=== PATIENT | female | born 1975 | race Caucasian/White ===

== ENCOUNTER 2020-04-11 10:45 | Observation (INO) ==
[2020-04-11 10:56] VITALS: BMI 21.9
[2020-04-11] MEDS ORDERED: NITROSTAT SL PRN ×2 (11:32→13:07)
[2020-04-11] MEDS ORDERED: LEVSIN/MAALOX/LIDOC VISC ONE (11:37)
--- NOTE | 2020-04-11 11:42 | DR.CP ---
HPI Time Seen Time Seen by Provider: 04/11/20 11:18 PCP Primary Care Physician: DR LEON Complaint Chief Complaint Doctor Comments: pt mathieu epigastric pain radiates up sub- sternally up to 8 out of 10 intensity-now 03/08 COVID-19 Coronavirus risk:travel/contact w/high risk person: No Has patient experienced Coronavirus symptoms: No Source History Provided: Patient Mode of Arrival Mode of Arrival: Ambulatory Timing Onset of Chief Complaint: 04/11/20 PMH PMH Past Medical History: Yes Past Medical History: Migraines, GERD, Hypertension and Hypothyroidism Past Surgical History: Yes Surgical History: Cholecystectomy, Hysterectomy and Ortho Surgery Family History History of Family Medical Conditions: Yes Family Medical History: Diabetes Mellitus and Heart Failure Social History Does patient currently use any type of tobacco product: No Have you used tobacco products in the last 12 months: No Type of Tobacco Use: None Does any household member use tobacco: No Alcohol Use: None Do you use any recreational Drugs:: No Lives With: Alone Lives Where: Home Travel Risk Coronavirus risk:travel/contact w/high risk person: No Has patient experienced Coronavirus symptoms: No Infectious screening In the last 2 months have you had wt loss of >10#?: NO Have you had fever, night sweats or hemotysis?: No Have you traveled outside the country in the last 6 months?: No Isolation: Standard ROS Review of Systems Constitutional: No Symptoms Reported; negative See HPI, Chills, Diaphoresis, Fever, Malaise, Weakness, Irritable, Fatigue, Loss of Appetite and Other Eyes: negative No Symptoms Reported, See HPI, Eye Pain, Blurred Vision, Tearing, Discharge, Photophobia, Diplopia and Other ENTM: negative No Symptoms Reported, See HPI, Ear Pain, Ear Discharge, Pulling on Ears, Hearing Loss, Nose Pain, Nose Discharge, Epistaxis, Nose Congestion, Mouth Pain, Mouth Swelling, Loose Teeth, Drooling, Throat Pain, Throat Swelling, Ear Foreign Body and Tooth/Dental Pain Respiratoy: negative No Symptoms Reported, See HPI, Productive Cough, Non- Productive Cough, Moist Cough, Dry Cough, Hacking Cough, Barking Cough, Brassy Cough, Orthopnea, Short of Breath, Stridor, Wheezing, Hemoptysis and Other Cardiovascular: Other (EPIGASTRIC PAIN UP TP 8/10 INTENSITY NOW 6/10, OF A AQUEEZING NATURE A woke her up from sleep at 2;30 this am sz increase when "I move around" ) Gastrointestinal/Abdominal: negative No Symptoms Reported, See HPI, Abdominal Pain, Constipation, Diarrhea, Nausea, Vomiting, Food Intolerance and Other Genitourinary: negative No Symptoms Reported, See HPI, Discharge, Dysuria, Frequency, Hematuria, Pain, Bleeding and Other Neurological: negative No Symptoms Reported, See HPI, Anxiety, Depressed, Emotional Problems, Headache, Numbness, Paresthesia, Pre-existing Deficit, Seizure, Tingling, Tremors, Weakness, Dizziness, Problems Walking, Speech Problem and Other Musculoskeletal: negative No Symptoms Reported, See HPI, Back Pain, Gout, Joint Pain, Joint Swelling, Muscle Pain, Muscle Stiffness, Neck Pain, Right, Left, Neck, Chest wall, Rib(s), Back, Shoulder, Arm, Elbow, Forearm, Wrist, Hand, Pelvis, Hip, Leg, Knee, Ankle, Foot and Other Integumentary: negative No Symptoms Reported, See HPI, Change in Color, Change in Hair/Nails, Dryness, Lesions, Lumps, Rash, Itching, Wound, Bruises, Juandice and Other Hematologic/Lymphatic: negative No Symptoms Reported, See HPI, Anemia, Blood Clots, Easy Bleeding, Easy Bruising, Swollen Glands, Lymphadenopathy and Other Endocrine: negative No Symptoms Reported, See HPI, Excessive Sweating, Flushing, Intolerance to Cold, Intolerance to Heat, Increased Hunger, Increased Thirst, Increased Urine, Unexplained Weight Gain, Unexplained Weight Loss, Failure to Thrive, Decreased Appetite and Other Psychiatric: negative No Symptoms Reported, See HPI, Anxiety, Depression, Hallucinations, Excessive crying, Suicidal and Other All Other Systems: Reviewed and Negative PE Vitals Vitals: Temperature 98.1 F Pulse Rate 90 Respiratory Rate 22 Blood Pressure 116/81 O2 Sat by Pulse Oximetry 100 General Limitations: No Limitations General Appearance: Alert, Anxious and Other (with c/o of CP) Head Head Exam: Normal Inspection, Atraumatic and Normocephalic Eyes Eye exam: Normal Appearance, PERRL and EOMI; negative Scleral Icterus and Conjunctival Injection ENT ENT Exam: Normal Exam, Normal Oropharynx, Normal External Ear Exam and Mucous Membranes Moist Chest Chest Inspection: Normal Inspection and Symmetric Chest Wall Rise; negative Tenderness Respiratory Respiratory Exam: Normal Lung Sounds Bilat; negative Accessory Muscle Use, Chest Wall Tenderness and Prolonged Expiratory Phase Respiratory Exam: Bilateral: Clear to Auscultation Cardiovascular Cardiovascular Exam: Regular Rate, Normal Rhythm and Normal Heart Sounds; negative Bradycardia, Tachycardia, Irregular Rhythm, Systolic Murmur and Diastolic Murmur Pulse: Normal Edema: Normal Abdominal Exam Abdominal Exam: Normal Inspection, Normal Bowel Sounds and Soft; negative Distention, Tenderness and Guarding Extremities Extremities Exam: Normal Inspection and Full ROM; negative Tenderness, Normal Capillary Refill, Edema and Joint Swelling Back Back Exam: Normal Inspection and Full ROM; negative Tenderness, (R) CVA Tenderness, (L) CVA Tenderness, Paraspinal Tenderness and Vertebral Tenderness Neurologic Neurological Exam: Alert, Oriented X3 and Normal Gait; negative Motor Sensory Deficit Psychiatric Psychiatric Exam: Other (anxious ) Skin Skin Exam: Warm, Dry, Intact and Normal Color ROR Labs Reviewed Laboratory Results Reviewed?: Yes Result Diagrams: 04/11/20 11:43 04/11/20 11:43 Laboratory: WBC 6.3 X10^3/uL (3.6-10.0) 04/11/20 11:43 RBC 3.83 X10^6/uL (3.5-5.4) 04/11/20 11:43 Hgb 11.8 g/dL (12.0-16.0) L 04/11/20 11:43 Hct 35.3 % (36.0-47.0) L 04/11/20 11:43 MCV 92.1 fL (80.0-100.0) 04/11/20 11:43 MCH 30.9 pg (27.0-34.0) 04/11/20 11:43 MCHC 33.6 g/dL (33.0-35.0) 04/11/20 11:43 RDW 14.2 % (11.6-16.5) 04/11/20 11:43 Plt Count 307 X10^3/uL (150.0-450.0) 04/11/20 11:43 MPV 6.6 fL (7.4-11.0) L 04/11/20 11:43 Neut % (Auto) 67.3 % (42.0-75.0) 04/11/20 11:43 Lymph % (Auto) 24.6 % (21.0-51.0) 04/11/20 11:43 Dickson % (Auto) 5.9 % (0.0-13.0) 04/11/20 11:43 Eos % (Auto) 1.6 % (0.9-2.9) 04/11/20 11:43 Baso % (Auto) 0.6 % (0.2-1.0) 04/11/20 11:43 Neut # (Auto) 4.3 x10^3/uL (2.2-4.8) 04/11/20 11:43 Lymph # (Auto) 1.6 X10^3/uL (1.3-2.9) 04/11/20 11:43 Dickson # (Auto) 0.4 x10^3/uL (0.3-0.8) 04/11/20 11:43 Eos # (Auto) 0.1 x10^3/uL (0.0-0.2) 04/11/20 11:43 Baso # (Auto) 0.0 X10^3/uL (0.0-0.1) 04/11/20 11:43 Absolute Nucleated RBC 0.0 /100WBC 04/11/20 11:43 Sodium 137 mmol/L (136-145) 04/11/20 11:43 Corrected Sodium TNP 04/11/20 11:43 Potassium 3.1 mmol/L (3.5-5.1) L 04/11/20 11:43 Chloride 104 mmol/L (98-107) 04/11/20 11:43 Carbon Dioxide 29.5 mmol/L (21-32) 04/11/20 11:43 BUN 11 mg/dL (7-18) 04/11/20 11:43 Creatinine 0.66 mg/dL (0.55-1.02) 04/11/20 11:43 Est GFR (MDRD) Af Amer > 60 (>60) 04/11/20 11:43 Est GFR (MDRD) Non-Af > 60 (>60) 04/11/20 11:43 Glucose 79 mg/dL (65-99) 04/11/20 11:43 Calcium 8.2 mg/dL (8.5-10.1) L 04/11/20 11:43 Corrected Calcium TNP 04/11/20 11:43 Total Bilirubin 0.30 mg/dL (0.2-1.0) 04/11/20 11:43 AST 16 Units/L (15-37) 04/11/20 11:43 ALT 28 Units/L (12-78) 04/11/20 11:43 Alkaline Phosphatase 57 Units/L (46-116) 04/11/20 11:43 Creatine Kinase 52 Units/L (26-192) 04/11/20 11:43 CK-MB (CK-2) < 1.0 ng/mL (0-4.0) 04/11/20 11:43 CK/CKMB % Calc 1.9 % (<4) 04/11/20 11:43 Troponin I < 0.02 ng/mL (0-1.5) 04/11/20 11:43 Total Protein 6.7 g/dL (6.4-8.2) 04/11/20 11:43 Albumin 3.5 g/dL (3.4-5.0) 04/11/20 11:43 Globulin 3.2 g/dL (2.5-4.5) 04/11/20 11:43 Albumin/Globulin Ratio 1.1 Ratio (1.1-2.1) 04/11/20 11:43 Other Results Comments: EKG #2 nsr 68bpm normal axis normal intervals normal QRS no st/t wave changes of ischemia or infarct XRAY XRAY Interpreted by: Radiologist X-ray Results: cest xr NAd EKG Rate: 77 [place]: Normal Rhythm: NSR Block: None Hypertrophy: None ST: Normal Opioid Opioid Risk Tool Age (Rajeev box if 16-45): No History of Preadolescent Sexual Abuse: No Total: 0 Total Score Risk Category: Low Risk Copyright: Eleazar CALDERA predicting aberrant behaviors
[2020-04-11] MEDS: LEVSIN/MAALOX/LIDOC VISC PO ONE ×2 (11:49→11:51)
[2020-04-11 11:58] LABS: BASOPHILS % (AUTO) 0.6 % (0.2-1.0); EOSINOPHILS # (AUTO) 0.1 x10^3/uL (0.0-0.2); EOSINOPHILS % (AUTO) 1.6 % (0.9-2.9); HEMATOCRIT 35.3 % (36.0-47.0); HEMOGLOBIN 11.8 g/dL (12.0-16.0); LYMPHOCYTES # (AUTO) 1.6 X10^3/uL (1.3-2.9); LYMPHOCYTES % (AUTO) 24.6 % (21.0-51.0); MEAN CORPUSCULAR HEMOGLOBIN 30.9 pg (27.0-34.0); MEAN CORPUSCULAR HGB CONC 33.6 g/dL (33.0-35.0); MEAN CORPUSCULAR VOLUME 92.1 fL (80.0-100.0); MEAN PLATELET VOLUME 6.6 fL (7.4-11.0); MONOCYTES # (AUTO) 0.4 x10^3/uL (0.3-0.8); MONOCYTES % (AUTO) 5.9 % (0.0-13.0); NEUTROPHILS # (AUTO) 4.3 x10^3/uL (2.2-4.8); NEUTROPHILS % (AUTO) 67.3 % (42.0-75.0); PLATELET COUNT 307 X10^3/uL (150.0-450.0); RED BLOOD COUNT 3.83 X10^6/uL (3.5-5.4); RED CELL DISTRIBUTION WIDTH 14.2 % (11.6-16.5); WHITE BLOOD COUNT 6.3 X10^3/uL (3.6-10.0)
[2020-04-11 12:28] LABS: ALANINE AMINOTRANSFERASE 28 Units/L (12-78); ALBUMIN 3.5 g/dL (3.4-5.0); ALKALINE PHOSPHATASE 57 Units/L (46-116); ASPARTATE AMINO TRANSFERASE 16 Units/L (15-37); BLOOD UREA NITROGEN 11 mg/dL (7-18); CALCIUM 8.2 mg/dL (8.5-10.1); CARBON DIOXIDE 29.5 mmol/L (21-32); CHLORIDE 104 mmol/L (98-107); CKMB % 1.9 % (<4); CREATINE KINASE 52 Units/L (26-192); CREATINE KINASE MB < 1.0 ng/mL (0-4.0); CREATININE 0.66 mg/dL (0.55-1.02); SODIUM 137 mmol/L (136-145); TOTAL PROTEIN 6.7 g/dL (6.4-8.2); TROPONIN I < 0.02 ng/mL (0-1.5); eGFR NON BLACK RACES > 60 (>60)
[2020-04-11] MEDS ORDERED: ZOFRAN INJ 4 MG VIAL IVP ONE (12:47)
[2020-04-11] MEDS ORDERED: MORPHINE SULFATE INJ 4 MG IVP ONE (12:47)
[2020-04-11] MEDS ORDERED: MORPHINE SULFATE INJ 4 MG ONE (12:50)
[2020-04-11] MEDS ORDERED: MICRO K EXTEN CAP 10 MEQ PO ONE (12:50)
[2020-04-11] MEDS: MICRO K EXTEN CAP 10 MEQ PO SCH (12:55)
[2020-04-11] MEDS ORDERED: MORPHINE SULFATE INJ 2 MG INJ IVP PRN (13:07)
[2020-04-11] MEDS ORDERED: ASPIRIN ONE (13:13)
[2020-04-11] MEDS ORDERED: ZOFRAN INJ 4 MG VIAL ONE (13:13)
[2020-04-11] MEDS: ASPIRIN PO SCH (13:17)
[2020-04-11] MEDS ORDERED: K-DUR TAB 20 MEQ PO PRN (14:14)
[2020-04-11] MEDS ORDERED: KLOR-CON PO PRN (14:14)
[2020-04-11] MEDS ORDERED: POTASSIUM CHL 40 MEQ/NS 0.45% 500 ML IV PRN (14:14)
[2020-04-11] MEDS ORDERED: K-RIDER 10 MEQ/NS 100 ML 10 MEQ/100 ML BAG IV PRN (14:14)
[2020-04-11] MEDS ORDERED: POTASSIUM CHLORIDE LIQ 20 MEQ UDC PO PRN (14:14)
[2020-04-11] MEDS ORDERED: MICRO K EXTEN CAP 10 MEQ PO PRN (14:14)
[2020-04-11] MEDS ORDERED: POTASSIUM CHL 60 MEQ/NS 0.45% 500 ML IV PRN (14:14)
[2020-04-11] MEDS: LOVENOX INJ 40 MG SYR SC SCH ×2 (16:27→21:02)
[2020-04-11] MEDS: PROTONIX INJ 40 MG VIAL IVP SCH (16:29)
--- NOTE | 2020-04-11 17:20 | RAD ---
HISTORYCHEST PAINSTUDYCHEST, 1 VIEWCOMPARISONNoneFINDINGSThe trachea is midline. The cardiac silhouette is unremarkable . The lungs are clear without focal infiltrate or effusion. The bony thorax is unremarkable.IMPRESSIONNo acute cardiopulmonary disease.Electronically signed by: DAVIDE BALDERAS (Apr 11, 2020 15:51:44)
[2020-04-11] MEDS ORDERED: NS 250 ML IV 250 ML IV ONE (17:37)
[2020-04-11] MEDS: MAGNESIUM SULFATE 1 GRAM/100 mL PREMIX 1 GM/100 ML BAG IV PRN ×2 (17:46→21:07)
[2020-04-11 18:35] LABS: CKMB % 1.9 % (<4); CREATINE KINASE 53 Units/L (26-192); CREATINE KINASE MB < 1.0 ng/mL (0-4.0); TROPONIN I < 0.02 ng/mL (0-1.5)
[2020-04-11] MEDS: TORADOL 30 MG VIAL IVP PRN (19:51)
[2020-04-11] MEDS ORDERED: RESTORIL CAP 15 MG PO PRN (21:11)
[2020-04-11 23:46] LABS: CKMB % 2.3 % (<4); CREATINE KINASE 44 Units/L (26-192); CREATINE KINASE MB < 1.0 ng/mL (0-4.0); TROPONIN I < 0.02 ng/mL (0-1.5)
[2020-04-12 06:06] LABS: BASOPHILS # (AUTO) 0.1 X10^3/uL (0.0-0.1); BASOPHILS % (AUTO) 1.1 % (0.2-1.0); EOSINOPHILS # (AUTO) 0.1 x10^3/uL (0.0-0.2); HEMATOCRIT 34.7 % (36.0-47.0); HEMOGLOBIN 11.9 g/dL (12.0-16.0); LYMPHOCYTES # (AUTO) 1.7 X10^3/uL (1.3-2.9); LYMPHOCYTES % (AUTO) 29.4 % (21.0-51.0); MEAN CORPUSCULAR HEMOGLOBIN 31.3 pg (27.0-34.0); MEAN CORPUSCULAR HGB CONC 34.4 g/dL (33.0-35.0); MEAN CORPUSCULAR VOLUME 91.2 fL (80.0-100.0); MEAN PLATELET VOLUME 6.8 fL (7.4-11.0); MONOCYTES # (AUTO) 0.4 x10^3/uL (0.3-0.8); MONOCYTES % (AUTO) 6.5 % (0.0-13.0); NEUTROPHILS # (AUTO) 3.6 x10^3/uL (2.2-4.8); PLATELET COUNT 297 X10^3/uL (150.0-450.0); RED BLOOD COUNT 3.81 X10^6/uL (3.5-5.4); RED CELL DISTRIBUTION WIDTH 13.6 % (11.6-16.5); WHITE BLOOD COUNT 5.9 X10^3/uL (3.6-10.0)
[2020-04-12 06:13] LABS: ALANINE AMINOTRANSFERASE 25 Units/L (12-78); ALBUMIN 3.1 g/dL (3.4-5.0); ALKALINE PHOSPHATASE 50 Units/L (46-116); ASPARTATE AMINO TRANSFERASE 15 Units/L (15-37); BLOOD UREA NITROGEN 7 mg/dL (7-18); CARBON DIOXIDE 26.2 mmol/L (21-32); CHLORIDE 105 mmol/L (98-107); CHOL/HDL RATIO 5.2 (0.0-5.0); CHOLESTEROL 172 mg/dL (0-200); COR CA(FOR HYPOALB) 8.7 mg/dL (8.5-10.1); CREATININE 0.61 mg/dL (0.55-1.02); HDL CHOLESTEROL 33 mg/dL (40-60); MAGNESIUM 2.1 mg/dL (1.7-2.9); SODIUM 138 mmol/L (136-145); TOTAL PROTEIN 6.1 g/dL (6.4-8.2); TRIGLYCERIDES 100 mg/dL (0-150); eGFR NON BLACK RACES > 60 (>60)
[2020-04-12] MEDS: TORADOL 30 MG VIAL IVP PRN (06:21)
[2020-04-12] MEDS ORDERED: ZOFRAN INJ 4 MG VIAL IVP ONE (07:49)
[2020-04-12] MEDS ORDERED: LEVSIN/MAALOX/LIDOC VISC PO ONE ×2 (07:50→10:06)
[2020-04-12] MEDS: MICRO K EXTEN CAP 10 MEQ PO SCH (08:47)
[2020-04-12] MEDS: ASPIRIN PO SCH (08:48)
[2020-04-12] MEDS: PROTONIX INJ 40 MG VIAL IVP SCH (08:49)
[2020-04-12] MEDS: LOVENOX INJ 40 MG SYR SC SCH (08:51)
[2020-04-12] MEDS ORDERED: ASPIRIN PO SCH (09:00)
--- NOTE | 2020-04-12 10:42 | DR.CARTERS ---
Short Stay Summary - Admission Date Date of Admission: 04/11/20 - Discharge Date Discharge Date: 04/12/20 - Admission Diagnoses (1) Epigastric abdominal pain Status: Acute (2) Chest pain Status: Acute - Hospital Course Hospital Course: IS A 44 YEAR OLD WHITE FEMALE, PATIENT OF , WHO PRESENTED TO THE ER WITH COMPLAINTS OF EPIGASTRIC PAIN WITH RADIATION UP TO THE STERNUM. PAIN WAS RATED 6/10 ON EXAMINATION AND WAS DESCRIBED BURNING AND SQUEEZING. PAIN INCREASED WITH MOVEMENT. SHE REPORTED THAT SYMPTOMS STARTED ONE DAY PRIOR TO ARRIVAL. HER PMH INCLUDES: Migraines, GERD, Hypertension, Hypothyroidism, Cholecystectomy, Hysterectomy and Ortho Surgery. ON ARRIVAL TO THE ER, VITALS WERE 98.1-05-14-100-122/59. LABS WERE OBTAINED. ABNORMAL LAB VALUES INCLUDE THE FOLLOWING: HGB 11.8, HCT 35.3, POTASSIUM 3.1, CALCIUM 8.2. CARDIAC ENZYMES WERE WITHIN NORMAL LIMITS. AN EKG WAS OBTAINED AND REVEALED: SINUS RHYTHM WITH HR 77. A CHEST XRAY WAS OBTAINED AND REVEALED: NO ACUTE CARDIOPULMONARY DISEASE. SHE WAS GIVEN ZOFRAN 4MG IV X 1, MORPHINE 4MG IV X 1, AND GI COCKTAIL 30ML PO X 1 IN THE ER. SHE WAS ADMITTED TO THE HOSPITAL FOR FURTHER EVALUATION AND TREATMENT OF CHEST PAIN RULE OUT ACUTE ID AND EPIGASTRIC PAIN. SHE WAS STARTED ON ASPIRIN 325MG PO DAILY, LOVENOX 40MG SC BID, MORPHINE 2MG IV Q2H PRN, NITROGLYCERIN 0.4 MG SL Q5M PRN, PROTONIX 40MG IV DAILY, TEMAZEPAM 15MG PO HS, AND THE POTASSIUM AND MAGNESIUM PROTOCOLS. OTHERWISE, WE PLANNED TO FOLLOW UP WITH AM LABS AND CONTINUE TO MONITOR. ON THE MORNING FOLLOWING ADMISSION, PATIENT IS ALERT AND ORIENTED, LYING IN BED ON MORNING ROUNDS. SHE CONTINUES WITH COMPLAINTS OF MILD EPIGASTRIC BURNING, BUT REPORTS IMPROVEMENT SINCE YESTERDAY. SHE DENIES CHEST PAIN THIS MORNING. ON EXAMINATION, HEART IS REGULAR IN RATE AND RHYTHM. BILATERAL LUNGS ARE NOTED WITH DIMINISHED LUNG SOUNDS THROUGHOUT. ABDOMEN IS ROUND, SOFT, AND NON-TENDER WITH NORMAL BOWEL SOUNDS NOTED IN ALL QUADRANTS. HER VITALS THIS MORNING ARE: 98.4-73-18-100%-119/56. LABS WERE OBTAINED. ABNORMAL LAB VALUES INCLUDE THE FOLLOWING: HGB 11.9, HCT 34.7, TOTAL PROTEIN 6.1, ALBUMIN 3.1, LDL 119, HCL 33, CHOLESTEROL 5.2. CARDIAC ENZYMES AND EKGS HAVE BEEN NORMAL. WE FEEL THOUGH HER SYMPTOMS ARE MORE RELATED TO GERD AND PEPTIC ULCERS RATHER THAN CARDIAC RELATED, HOWEVER, WE WILL REFER HER TO , JIG OPERATOR FOR FURTHER WORK-UP AFTER DISCHARGE. WE PLANNED FOR DISCHARGE. INSTRUCTIONS FOR MEDICATIONS AND FOLLOW UP WERE DISCUSSED WITH PATIENT AND FAMILY. WE WILL DISCHARGE HER HOME ON PROTONIX 40MG PO BID, PEPCID 40MG PO BID, DICYCLOMINE 20MG PO TID PRN, AND HYOSCYAMINE 15ML PO QID. SHE WAS INSTRUCTED TO FOLLOW UP WITH , JIG OPERATOR IN 1 WEEK WELL HER PRIMARY CARE PHYSICIAN. PATIENT DISCHARGED HOME WITH FAMILY IN STABLE, IMPROVED CONDITION. - Discharge Medications Discharge Medications: Home Medication List [id number] [Fiorinal-Codeine #3] 1 cap PO DAILY 04/11/20 [History] gabapentin 300 mg PO TID 04/11/20 [History] hydrocodone-acetaminophen [Lorcet HD] 1 tab PO BID PRN 04/11/20 [History] levothyroxine 50 mcg PO DAILY 04/11/20 [History] lisinopril 10 mg PO BID 04/11/20 [History] omeprazole 40 mg PO DAILY 04/11/20 [History] phentermine 37.5 mg PO QAM 04/11/20 [History] tizanidine 4 mg PO QHS 04/11/20 [History] dicyclomine 20 mg PO TID PRN #30 tab 04/12/20 [Rx] famotidine [Pepcid] 40 mg PO BID #60 tab 04/12/20 [Rx] hyoscyamine sulfate [Hyosyne] 15 ml PO QID #240 ml 04/12/20 [Rx] pantoprazole 40 mg PO BID #60 tab 04/12/20 [Rx] Prescriptions: dicyclomine Prabhjot Brewer famotidine [Pepcid] Prabhjot Brewer hyoscyamine sulfate [Hyosyne] Prabhjot Brewer pantoprazole Prabhjot Brewer - Discharge Plan Disposition: 01 HOME, SELF-CARE Condition: Stable Prescriptions: dicyclomine 20 mg PO TID PRN #30 tab PRN Reason: famotidine [Pepcid] 40 mg PO BID #60 tab hyoscyamine sulfate [Hyosyne] 15 ml PO QID #240 ml pantoprazole 40 mg PO BID #60 tab - Follow up/Referrals Follow up/Referrals: Bartolo Funes [Other] - 04/19/20 10:00 am Tyler Munoz [STAFF PHYSICIAN] - 1 WEEK (Patient's hospital stay record faxed to [phone] for office to make follow up appointment for new patient.) - Instructions Instructions: Fatigue, Heartburn, [id number], Gastroesophageal Reflux Disease, Adult, [id number], Weakness, Chest Wall Pain Additional Instructions: DIET TOLERATED. ACTIVITY TOLERATED. Forms: Excuse From Work or School, Precautions for COVID19, Patient Portal, Social Distancing
[2020-04-12] MEDS ORDERED: PEPCID 20 MG IV PREMIX* 20 MG/50 ML BAG IV SCH (11:00)
[2020-04-12] MEDS: BENTYL CAP 10 MG PO SCH ×2 (11:02→13:32)
[2020-04-12 12:38] VITALS: BP 105/55
[2020-04-12] MEDS ORDERED: LEVSIN/MAALOX/LIDOC VISC PO SCH (13:00)
[2020-04-12] MEDS ORDERED: TYLENOL 325 MG TAB PO ONE ×2 (13:17→13:20)
== END 2020-04-12 15:11 | disposition home or self-care (01) ==
LOC: MED/SURG 10:48 → ER 10:48 → MED/SURG 14:41
PROVIDERS: ADMIT Internal Medicine; ATTEND Internal Medicine
DX: F13.20 Sedative, hypnotic or anxiolytic dependence, uncomplicated; E03.8 Other specified hypothyroidism; I10 Essential (primary) hypertension; Z79.899 Other long term (current) drug therapy; K21.9 Gastro-esophageal reflux disease without esophagitis; R10.13 Epigastric pain; F19.90 Other psychoactive substance use, unspecified, uncomplicated; R07.89 Other chest pain; F12.90 Cannabis use, unspecified, uncomplicated
CPT/HCPCS: 36415; 71010; 71045; 80053; 80061; 80307; 82550; 82553; 83735; 84484; 85025; 85610; 85730; 93005; 94760; 96365; 96372; 96374; 96375; 99284; A4216; A4222; C9113; G0378; J1650; J1885; J2270; J2405; J3475; J3490; J7050; S0028